=== PATIENT | male | born 1995 | race Caucasian/White ===

== ENCOUNTER 2021-12-26 23:34 | Emergency (ER) | payer SELFPAY ==
--- NOTE | 2021-12-27 00:15 | ER ---
Nurse's Notes [facility] Name: Tarik Sumner Age: 26 yrs Sex: Male : 1995 Arrival Date: 12/26/2021 Time: 23:35 Bed 2 Private MD: Diagnosis: Adverse effect of benzodiazepines Presentation: 12/26 23:35 Chief complaint: EMS states: "Pts brother called saying he took about 10 Xanax and 3 vc1 Percocet and he wasn't responding. When we arrived Pt was slouched and lethargic, alert to verbal Stimuli. Vitals stable en route. Coronavirus screen: Vaccine status: Patient reports being unvaccinated. At this time, the client does not indicate any symptoms associated with coronavirus-19. Ebola Screen: No symptoms or risks identified at this time. Initial Sepsis Screen: Does the patient meet any 2 criteria? No. Patient's initial sepsis screen is negative. Does the patient have a suspected source of infection? No. Patient's initial sepsis screen is negative. Risk Assessment: Do you want to hurt yourself or someone else? Patient reports no desire to harm self or others. Onset of symptoms is unknown. 23:35 Method Of Arrival: EMS: [facility] vc1 23:35 Acuity: DASIA 2 vc1 Historical: - Allergies: 23:40 No Known Allergies; vc1 - Home Meds: 23:40 None [Active]; vc1 - PMHx: 23:40 None; vc1 - PSHx: 23:40 None; vc1 - Immunization history:: Adult Immunizations unknown. - Social history:: Smoking status: Patient reports the use of cigarette tobacco products, smokes one pack cigarettes per day. - Family history:: not pertinent. - Hospitalizations: : No recent hospitalization is reported. Screenin/20 00:20 Abuse screen: Denies threats or abuse. Nutritional screening: No deficits noted. jb4 Tuberculosis screening: No symptoms or risk factors identified. Fall Risk None identified. Assessment: 00:20 General: Appears in no apparent distress. comfortable, Behavior is calm, cooperative, jb4 appropriate for age. Pain: Denies pain. Neuro: Level of Consciousness is awake, alert, obeys commands, Oriented to person, place, time, situation. Cardiovascular: Patient's skin is warm and dry. Respiratory: Airway is patent Respiratory effort is even, unlabored, Respiratory pattern is regular, symmetrical. Derm: Skin is intact, Skin is pink, warm \\T\\ dry. Musculoskeletal: Circulation, motion, and sensation intact. Range of motion: intact in all extremities. Vital Signs: 12/26 23:35 BP 113 / 76; Pulse 43; Resp 15; Temp 97.7; Pulse Ox 98% on R/A; Weight 72.57 kg; Height vc1 5 ft. 7 in. (170.18 cm); Pain 0/10; 12/27 00:00 BP 115 / 74; Pulse 81; Resp 17; Pulse Ox 100% ; vc1 12/26 23:35 Body Mass Index 25.06 (72.57 kg, 170.18 cm) vc1 ED Course: 12/26 23:35 Patient arrived in ED. vc1 23:36 Gopal Narayan MD is Attending Physician. rn 23:39 Triage completed. vc1 12/27 00:20 Patient has correct armband on for positive identification. Placed in gown. Bed in low jb4 position. Call light in reach. Side rails up X 1. Client placed on continuous cardiac and pulse oximetry monitoring. NIBP monitoring applied. appellate court judge on. 00:20 No provider procedures requiring assistance completed. Patient did not have IV access jb4 during this emergency room visit. Administered Medications: No medications were administered Medication: 00:20 VIS not applicable for this client. jb4 Outcome: 00:13 Discharge ordered by . rn 00:20 Discharged to home ambulatory. jb4 00:20 Condition: stable 00:20 Discharge instructions given to patient, Instructed on discharge instructions, follow up and referral plans. Demonstrated understanding of instructions, follow-up care. 00:22 Patient left the ED. jb4 Signatures: Gopal Narayan MD MD rn Bryson, James, RN RN jb4 Mee Gillespie RN RN vc1
--- NOTE | 2021-12-27 00:15 | EDPHYS ---
Physician Documentation [facility] Name: Tarik Sumner Age: 26 yrs Sex: Male : 1995 Arrival Date: 12/26/2021 Time: 23:35 Bed 2 Private MD: ED Physician Gopal Narayan HPI: 12/27 00:09 This 26 yrs old Male presents to ER via EMS with complaints of overdose. rn 00:09 The patient presents to the emergency department with a possible overdose. Context: rn Method: the patient has a confirmed or suspected ingestion, Time: yesterday, the OD/poisoning occurred at at home. Associated signs and symptoms: Pertinent negatives: anxiety, incontinence, shortness of breath, vomiting. Severity of symptoms: At their worst the symptoms were moderate in the emergency department the symptoms have improved. The patient has experienced similar episodes in the past. The patient has not recently seen a physician. EMS reports patient took 3 xanax and a percocet last night, brother checked on him and was hard to arouse, called 911, upon EMS arrival patient sleeping, woke up with tactile stimulation, stable vitals, and no intervention required. State patient wide awake and talkative since then. . Historical: - Allergies: 12/26 23:40 No Known Allergies; vc1 - Home Meds: 23:40 None [Active]; vc1 - PMHx: 23:40 None; vc1 - PSHx: 23:40 None; vc1 - Immunization history:: Adult Immunizations unknown. - Social history:: Smoking status: Patient reports the use of cigarette tobacco products, smokes one pack cigarettes per day. - Family history:: not pertinent. - Hospitalizations: : No recent hospitalization is reported. ROS: 12/27 00:09 Constitutional: Negative for fever, chills, and weight loss, Eyes: Negative for injury, rn pain, redness, and discharge, Neck: Negative for injury, pain, and swelling, Cardiovascular: Negative for chest pain, palpitations, and edema, Respiratory: Negative for shortness of breath, cough, wheezing, and pleuritic chest pain, Abdomen/GI: Negative for abdominal pain, nausea, vomiting, diarrhea, and constipation, Back: Negative for injury and pain, MS/Extremity: Negative for injury and deformity, Skin: Negative for injury, rash, and discoloration, Neuro: Negative for headache, weakness, numbness, tingling, and seizure. Exam: 00:09 Constitutional: This is a well developed, well nourished patient who is awake, alert, rn and in no acute distress. Head/Face: Normocephalic, atraumatic. Eyes: Pupils equal round and reactive to light, extra-ocular motions intact. Lids and lashes normal. Conjunctiva and sclera are non-icteric and not injected. Cornea within normal limits. Periorbital areas with no swelling, redness, or edema. Cardiovascular: Regular rate and rhythm . No pulse deficits. Respiratory: No increased work of breathing, no retractions or nasal flaring. Abdomen/GI: Soft, non-tender Skin: Warm, dry with normal turgor. Normal color with no rashes, no lesions, and no evidence of cellulitis. MS/ Extremity: Pulses equal, no cyanosis. Neurovascular intact. Full, normal range of motion. Equal circumference. Neuro: Awake and alert, GCS 15, oriented to person, place, time, and situation. Cranial nerves II-XII grossly intact. Motor strength 5/5 in all extremities. Sensory grossly intact. Cerebellar exam normal. Normal gait. Vital Signs: 12/26 23:35 BP 113 / 76; Pulse 43; Resp 15; Temp 97.7; Pulse Ox 98% on R/A; Weight 72.57 kg; Height vc1 5 ft. 7 in. (170.18 cm); Pain 0/10; 12/27 00:00 BP 115 / 74; Pulse 81; Resp 17; Pulse Ox 100% ; vc1 12/26 23:35 Body Mass Index 25.06 (72.57 kg, 170.18 cm) vc1 MDM: 12/26 23:36 Patient medically screened. rn 12/27 00:09 Differential diagnosis: Ingestion/exposure to percocet and xanax. Data reviewed: vital rn signs, nurses notes, and as a result, I will discharge patient. Counseling: I had a detailed discussion with the patient and/or guardian regarding: the historical points, exam findings, and any diagnostic results supporting the discharge/admit diagnosis, the need for outpatient follow up, to return to the emergency department if symptoms worsen or persist or if there are any questions or concerns that arise at home. Special discussion: I discussed with the patient/guardian in detail that at this point there is no indication for admission to the hospital. It is understood, however, that if the symptoms persist or worsen the patient needs to return immediately for re-evaluation. ED course: Pt wide awake, ambulatory to bathroom, talking on phone and calling for ride.. Administered Medications: No medications were administered Disposition Summary: 12/27/21 00:13 Discharge Ordered Location: Home rn Problem: new rn Symptoms: have improved rn Condition: Stable rn Diagnosis - Adverse effect of benzodiazepines rn Followup: rn - With: Private Physician - When: As needed - Reason: Recheck today's complaints, Re-evaluation by your physician Discharge Instructions: - Discharge Summary Sheet rn - Benzodiazepine Overdose rn Forms: - Medication Reconciliation Form rn - Thank You Letter rn - Antibiotic programming internship - Prescription Opioid Use rn Signatures: Gopal Narayan MD MD rn Calcote, Vanessa, RN RN vc1
[2021-12-27 00:36] VITALS: TEMP 97.7
[2021-12-27 00:38] VITALS: BP 115/74; O2SAT 100
== END 2021-12-27 00:22 | disposition home or self-care (01) ==
LOC: ER 23:34
DX: T42.4X1A Poisoning by benzodiazepines, accidental (unintentional), initial encounter (principal); T42.4X5A Adverse effect of benzodiazepines, initial encounter; F17.210 Nicotine dependence, cigarettes, uncomplicated
CPT/HCPCS: 99284